=== PATIENT | male | born 1935 | race Native Hawaiian/Other Pacific Islander ===

== ENCOUNTER 2016-10-02 10:52 | Emergency (ER) | payer OTHER ==
[~2016-10-02] VITALS: Ht 182.9 cm; Wt 83.9 kg
[~2016-10-02 10:52] MED LIST: ARICEPT ODT10 MG OR; FORTAMET1000 MG PO; MOBIC15 MG PO; OXYB5TAB56 PO; TERA1CAP PO; ZESTRIL40 MG OR; ZOCOR80 MG OR
[2016-10-02 13:07] VITALS: BP 172/92; TEMP 98.2
== END 2016-10-02 13:13 | disposition home or self-care (01) ==
LOC: ED 10:52
DX: C79.51 Secondary malignant neoplasm of bone (principal); M47.896 Other spondylosis, lumbar region; M48.02 Spinal stenosis, cervical region
CPT/HCPCS: 96372; 99282; J1885

== ENCOUNTER 2016-11-02 14:56 | Outpatient (CLI) | payer OTHER | END 2016-11-02 15:56 | disposition home or self-care (01) | LOC: RAD 14:56 | DX: M54.2 Cervicalgia (principal); M25.511 Pain in right shoulder ==

== ENCOUNTER 2016-11-18 20:26 | Outpatient (CLI) | payer OTHER | END 2016-11-18 20:43 | disposition short-term general hospital (02) | LOC: AMB 20:26 | DX: M79.601 Pain in right arm (principal); W01.190A Fall on same level from slipping, tripping and stumbling with subsequent striking against furniture, initial encounter; Y92.098 Other place in other non-institutional residence as the place of occurrence of the external cause | CPT/HCPCS: A0425; A0427 ==